=== PATIENT | male | born 1960 | race Hispanic/Latino ===

== ENCOUNTER 2021-10-25 12:18 | Outpatient (CLI) | payer OTHER | END 2021-10-25 20:28 | disposition home or self-care (01) | LOC: CT 12:18 | PROVIDERS: ATTEND Internal Medicine | DX: G70.00 Myasthenia gravis without (acute) exacerbation (principal); R11.0 Nausea; C61 Malignant neoplasm of prostate | CPT/HCPCS: 36415; 82565; 84520; Q9963 ==

== ENCOUNTER 2023-07-02 13:17 | Outpatient (CLI) | payer OTHER, MEDICARE | END 2023-07-02 19:31 | disposition home or self-care (01) | LOC: CT 13:17 | PROVIDERS: ATTEND Internal Medicine | DX: R22.2 Localized swelling, mass and lump, trunk (principal); Z85.528 Personal history of other malignant neoplasm of kidney; Z85.46 Personal history of malignant neoplasm of prostate ==